=== PATIENT | male | born 1985 | race Caucasian/White ===

== ENCOUNTER 2016-12-17 12:51 | Emergency (ER) | payer MEDICAID ==
[~2016-12-17] VITALS: Ht 190.5 cm; Wt 75.3 kg
[2016-12-17 13:03] VITALS: BP 105/71
[2016-12-17] MEDS ORDERED: LIDOCAINE 1%, 20ML ONE (13:43)
[2016-12-17] MEDS ORDERED: LIDOCAINE 1%, 20ML SQ ONE (14:00)
== END 2016-12-17 14:01 | disposition home or self-care (01) ==
LOC: ED 13:55
DX: K04.7 Periapical abscess without sinus (principal)
CPT/HCPCS: 41800

== ENCOUNTER 2016-12-22 11:53 | Emergency (ER) | payer SELFPAY ==
[~2016-12-22] VITALS: Ht 190.5 cm; Wt 75.0 kg
[2016-12-22 12:05] VITALS: BP 110/70
[2016-12-22] MEDS ORDERED: LIDOCAINE 2% VISCOUS 15 ML UDC MM ONE (12:30)
== END 2016-12-22 13:15 | disposition home or self-care (01) ==
LOC: ED 13:10
DX: K04.7 Periapical abscess without sinus (principal)
CPT/HCPCS: 41800

== ENCOUNTER 2018-12-21 03:20 | Observation (INO) | payer MEDICAID, OTHER ==
[2018-12-21] VITALS (7 sets, daily range): BP systolic 101–116; BP diastolic 67–77
[~2018-12-21] VITALS: Ht 188 cm; Wt 64.8 kg
--- NOTE | 2018-12-21 03:30 | NUR ---
pt [place] [facility] [place] with c/o k 6.5 pt in nad at this time
[2018-12-21 03:53] LABS: BASOPHILS # (AUTO) 0.05 x10^3/uL (0-0.1); BASOPHILS % (AUTO) 1 % (0-1); EOSINOPHILS % (AUTO) 3 % (1-7); LYMPHOCYTES # (AUTO) 2.02 x10^3/uL (1-3.4); LYMPHOCYTES % (AUTO) 26 % (22-44); MD NO; MEAN CORPUSCULAR HEMOGLOBIN 28.4 pg (27.5-34.5); MEAN CORPUSCULAR HGB CONC 32.9 g/dL (33.2-36.2); MEAN CORPUSCULAR VOLUME 86.2 fL (81-97); MEAN PLATELET VOLUME 8.1 fL (7.4-10.4); MONOCYTES # (AUTO) 0.44 x10^3/uL (0.2-0.8); MONOCYTES % (AUTO) 6 % (2-9); NEUTROPHILS # (AUTO) 5.21 x10^3/uL (1.8-6.8); NEUTROPHILS % (AUTO) 66 % (42-75); PLATELET COUNT 421 x10^3/uL (130-400); RED BLOOD COUNT 5.68 x10^6/uL (4.38-5.82); RED CELL DISTRIBUTION WIDTH 14.3 % (9.4-14.8)
[2018-12-21 04:00] LABS: ALBUMIN 4.4 g/dL (3.4-5.0); ANION GAP 5 mmol/L (5-15); CALCIUM 9.4 mg/dL (8.5-10.1); CHLORIDE 101 mmol/L (98-107); CREATININE 1.41 mg/dL (0.7-1.3)
[2018-12-21] MEDS ORDERED: HYDROCORTISONE 100 MG INJ. IVPush STA (04:25)
--- NOTE | 2018-12-21 04:44 | NUR ---
piv place medicated per beka, pt in nad
[2018-12-21] MEDS ORDERED: FLUD5POW PO (04:48)
[2018-12-21] MEDS ORDERED: PRED5POW3 PO (04:50)
--- NOTE | 2018-12-21 04:53 | NUR ---
awaiting admit orders
[2018-12-21] MEDS ORDERED: CALCIUM GLUCONATE 9.2 MEQ in SODIUM CHLORIDE 0.9% 100 ML IV ONE (05:00)
--- NOTE | 2018-12-21 05:32 | NUR ---
report to tangela pt to floor with chris
[2018-12-21] MEDS ORDERED: ONDANSETRON ODT 4 MG PO PRN (07:00)
[2018-12-21] MEDS ORDERED: POLYETHYLENE GLYCOL 17 GM PACKET PO PRN (07:00)
[2018-12-21] MEDS ORDERED: LIDODERM 5% PATCH TD PRN (07:00)
[2018-12-21] MEDS ORDERED: GUAIFENESIN/DM 200-20MG, 10ML UDC PO PRN (07:00)
[2018-12-21] MEDS ORDERED: ICN HYDROCORTISONE 1 MG/ML IV IV SCH (07:00)
[2018-12-21] MEDS ORDERED: ACETAMINOPHEN 325 MG TABLET PO PRN (07:00)
[2018-12-21] MEDS ORDERED: hydrALAzine 20 MG/ML, 1ML IVPush PRN (07:00)
[2018-12-21] MEDS: HYDROCORTISONE 100 MG INJ. IVPush SCH ×2 (07:56→15:59)
[2018-12-21] MEDS: SODIUM CHLORIDE 0.9% 1,000 ML IV SCH ×2 (07:57→15:59)
[2018-12-21] MEDS ORDERED: PANTOPRAZOLE 40 MG IV IVPush SCH (09:00)
[2018-12-21] MEDS: DOCUSATE 100 MG CAPSULE PO PRN (15:59)
[2018-12-21 16:04] LABS: ANION GAP 9 mmol/L (5-15); CALCIUM 8.8 mg/dL (8.5-10.1); CHLORIDE 102 mmol/L (98-107); CREATININE 1.41 mg/dL (0.7-1.3)
[2018-12-21 17:13] LABS: MICROSCOPIC NOT IND
[2018-12-21 17:18] LABS: CULTURE INDICATED? NO
[2018-12-21] MEDS ORDERED: SODIUM POLYSTYRENE SULFONATE ORAL SUSP PO ONE (19:30)
[2018-12-22] MEDS: HYDROCORTISONE 100 MG INJ. IVPush SCH ×3 (00:08→16:47)
[2018-12-22] MEDS: SODIUM CHLORIDE 0.9% 1,000 ML IV SCH (00:09)
[2018-12-22 00:14] VITALS: BP 109/63
[2018-12-22 04:01] VITALS: BP 115/56
[2018-12-22] MEDS: PANTOPROZOLE 40MG TABLET PO SCH (05:08)
[2018-12-22 05:48] LABS: ANION GAP 6 mmol/L (5-15); CALCIUM 8.7 mg/dL (8.5-10.1); CHLORIDE 105 mmol/L (98-107); CREATININE 1.13 mg/dL (0.7-1.3)
[2018-12-22 05:54] LABS: BASOPHILS # (AUTO) 0.02 x10^3/uL (0-0.1); BASOPHILS % (AUTO) 0 % (0-1); EOSINOPHILS # (AUTO) 0.05 x10^3/uL (0-0.4); EOSINOPHILS % (AUTO) 1 % (1-7); LYMPHOCYTES # (AUTO) 0.91 x10^3/uL (1-3.4); LYMPHOCYTES % (AUTO) 10 % (22-44); MD NO; MEAN CORPUSCULAR HEMOGLOBIN 28.3 pg (27.5-34.5); MEAN CORPUSCULAR HGB CONC 32.7 g/dL (33.2-36.2); MEAN CORPUSCULAR VOLUME 86.7 fL (81-97); MEAN PLATELET VOLUME 8.5 fL (7.4-10.4); MONOCYTES # (AUTO) 0.32 x10^3/uL (0.2-0.8); MONOCYTES % (AUTO) 4 % (2-9); NEUTROPHILS # (AUTO) 7.65 x10^3/uL (1.8-6.8); NEUTROPHILS % (AUTO) 85 % (42-75); PLATELET COUNT 364 x10^3/uL (130-400); RED BLOOD COUNT 4.73 x10^6/uL (4.38-5.82); RED CELL DISTRIBUTION WIDTH 14.2 % (9.4-14.8)
[2018-12-22 08:49] VITALS: BP_SYST 104; BP_SYST 109; BP_DIAS 70; BP_DIAS 71
[2018-12-22 08:52] VITALS: BP 113/70
[2018-12-22 13:15] VITALS: BP 101/59
[2018-12-22 18:42] VITALS: BP 105/64
[2018-12-22] MEDS: FLUDROCORTISONE 0.1 MG TABLET PO SCH (20:53)
[2018-12-23] VITALS: BP 105/61
[2018-12-23 05:32] VITALS: BP 113/70
[2018-12-23] MEDS: PANTOPROZOLE 40MG TABLET PO SCH (05:35)
[2018-12-23 06:20] LABS: BASOPHILS # (AUTO) 0.03 x10^3/uL (0-0.1); BASOPHILS % (AUTO) 0 % (0-1); EOSINOPHILS # (AUTO) 0.01 x10^3/uL (0-0.4); EOSINOPHILS % (AUTO) 0 % (1-7); LYMPHOCYTES # (AUTO) 1.34 x10^3/uL (1-3.4); LYMPHOCYTES % (AUTO) 16 % (22-44); MD NO; MEAN CORPUSCULAR HEMOGLOBIN 27.9 pg (27.5-34.5); MEAN CORPUSCULAR HGB CONC 32.5 g/dL (33.2-36.2); MEAN CORPUSCULAR VOLUME 85.8 fL (81-97); MEAN PLATELET VOLUME 8.4 fL (7.4-10.4); MONOCYTES # (AUTO) 0.82 x10^3/uL (0.2-0.8); MONOCYTES % (AUTO) 10 % (2-9); NEUTROPHILS # (AUTO) 6.41 x10^3/uL (1.8-6.8); NEUTROPHILS % (AUTO) 75 % (42-75); PLATELET COUNT 329 x10^3/uL (130-400); RED BLOOD COUNT 4.42 x10^6/uL (4.38-5.82); RED CELL DISTRIBUTION WIDTH 14.9 % (9.4-14.8)
[2018-12-23 06:28] LABS: ANION GAP 6 mmol/L (5-15); CALCIUM 8.5 mg/dL (8.5-10.1); CHLORIDE 108 mmol/L (98-107)
[2018-12-23 06:29] LABS: CREATININE 0.99 mg/dL (0.7-1.3)
[2018-12-23] MEDS: DOCUSATE 100 MG CAPSULE PO PRN (08:08)
[2018-12-23] MEDS: FLUDROCORTISONE 0.1 MG TABLET PO SCH (08:08)
[2018-12-23 09:30] VITALS: BP 100/66
[2018-12-23] MEDS ORDERED: FLUD0.1T PO (11:48)
[2018-12-23] MEDS ORDERED: PRED10TA PO (11:48)
== END 2018-12-23 15:53 ==
LOC: ED 03:51 → EDIP 04:33 → INTOOBSV 04:33 → 4WST 07:21
PROVIDERS: ADMIT Internal Medicine; ATTEND Internal Medicine
DX: M79.10 Myalgia, unspecified site (principal); N17.9 Acute kidney failure, unspecified; E27.2 Addisonian crisis; E87.1 Hypo-osmolality and hyponatremia; R42 Dizziness and giddiness; E87.5 Hyperkalemia; F17.210 Nicotine dependence, cigarettes, uncomplicated; F12.90 Cannabis use, unspecified, uncomplicated; Z91.19 Patient's noncompliance with other medical treatment and regimen; Z86.018 Personal history of other benign neoplasm
CPT/HCPCS: 36415; 71046; 80048; 81003; 82040; 82533; 82962; 84443; 85025; 93005; 96361; 96365; 96375; 96376; 97161; 97165; 99285; C9113; G0378; J0610; J1720; J7030; J7512; 96374

== ENCOUNTER 2019-01-08 15:47 | Emergency (ER) | payer MEDICAID, OTHER ==
[~2019-01-08 15:47] MED LIST: FLUD0.1T PO; FLUD5POW PO; PRED10TA PO; PRED5POW3 PO
--- NOTE | 2019-01-08 15:55 | NUR ---
Pt uncooperative with staff trying to take vitals, refusing to let tech take blood pressure, uncooperative with PA and RN in triage, pt agitated and left triage room "im leaving" pt encouraged to stay, pt left ED
== END 2019-01-08 15:58 | disposition left against medical advice (07) ==
LOC: ED 15:52
DX: M79.645 Pain in left finger(s) (principal)
CPT/HCPCS: 99281

== ENCOUNTER 2019-01-09 19:34 | Emergency (ER) | payer MEDICAID ==
--- NOTE | 2019-01-09 19:45 | NUR ---
no answer x1 @ 1942
--- NOTE | 2019-01-09 19:52 | NUR ---
NO ANSWER X 2 @1950
--- NOTE | 2019-01-09 19:59 | NUR ---
NO ANSWER X 1999
--- NOTE | 2019-01-09 20:30 | NUR ---
NO ANSWER x4 2030
== END 2019-01-09 20:37 | disposition left against medical advice (07) ==
LOC: ED 20:20
DX: S69.92XA Unspecified injury of left wrist, hand and finger(s), initial encounter (principal); Z53.21 Procedure and treatment not carried out due to patient leaving prior to being seen by health care provider; X58.XXXA Exposure to other specified factors, initial encounter; Y93.89 Activity, other specified; Y92.89 Other specified places as the place of occurrence of the external cause; Y99.8 Other external cause status

== ENCOUNTER 2019-01-27 15:22 | Inpatient (IN) | payer MEDICAID ==
[~2019-01-27] VITALS: Ht 188 cm; Wt 84.5 kg
--- NOTE | 2019-01-27 15:49 | NUR ---
Patient to xray.
[2019-01-27] MEDS ORDERED: SODIUM CHLORIDE 0.9% 1,000ML IVBOLUS ONE (16:00)
[2019-01-27 16:17] LABS: BASOPHILS # (AUTO) 0.05 x10^3/uL (0-0.1); BASOPHILS % (AUTO) 1 % (0-1); EOSINOPHILS # (AUTO) 0.05 x10^3/uL (0-0.4); EOSINOPHILS % (AUTO) 1 % (1-7); LYMPHOCYTES # (AUTO) 2.54 x10^3/uL (1-3.4); LYMPHOCYTES % (AUTO) 30 % (22-44); MD NO; MEAN CORPUSCULAR HEMOGLOBIN 27.1 pg (27.5-34.5); MEAN CORPUSCULAR HGB CONC 32.8 g/dL (33.2-36.2); MEAN CORPUSCULAR VOLUME 82.7 fL (81-97); MEAN PLATELET VOLUME 8.8 fL (7.4-10.4); MONOCYTES # (AUTO) 0.61 x10^3/uL (0.2-0.8); MONOCYTES % (AUTO) 7 % (2-9); NEUTROPHILS # (AUTO) 5.13 x10^3/uL (1.8-6.8); NEUTROPHILS % (AUTO) 61 % (42-75); PLATELET COUNT 454 x10^3/uL (130-400); RED BLOOD COUNT 6.23 x10^6/uL (4.38-5.82); RED CELL DISTRIBUTION WIDTH 14.8 % (9.4-14.8)
[2019-01-27 16:29] LABS: ALANINE AMINOTRANSFERASE 34 U/L (12-78); ALBUMIN 5.1 g/dL (3.4-5.0); ANION GAP 12 mmol/L (5-15); CALCIUM 10.1 mg/dL (8.5-10.1); CHLORIDE 87 mmol/L (98-107); CREATININE 2.81 mg/dL (0.7-1.3)
[2019-01-27] MEDS ORDERED: FLUDROCORTISONE 0.1 MG TABLET PO ONE (16:30)
[2019-01-27] MEDS ORDERED: ONDANSETRON 2MG/ML, 2ML IVPush ONE (16:30)
--- NOTE | 2019-01-27 16:30 | NUR ---
Delay in care d/t patient being difficult stick.
[2019-01-27 16:31] LABS: ALKALINE PHOSPHATASE 162 U/L (45-117); BILIRUBIN,TOTAL 1.9 mg/dL (0.2-1.0); TOTAL PROTEIN 10.3 g/dL (6.4-8.2)
[2019-01-27] MEDS ORDERED: ALBUTEROL 0.5%, 20ML NPPB ONE (17:00)
[2019-01-27] MEDS ORDERED: DEXTROSE 50%, 50ML SYRINGE IVPush ONE ×2 (17:00→18:30)
[2019-01-27] MEDS ORDERED: FUROSEMIDE 40 MG/4 ML ONE (17:00)
[2019-01-27] MEDS ORDERED: SODIUM BICARB 8.4%, 50ML SYRINGE ONE (17:00)
[2019-01-27] MEDS ORDERED: INSULIN REGULAR 100 UNITS/ML, 3ML VIAL IVPush ONE (17:00)
[2019-01-27] MEDS ORDERED: SODIUM BICARB 8.4%, 50ML SYRINGE IVPush ONE (17:00)
[2019-01-27] MEDS ORDERED: DEXAMETHASONE 4 MG/ML, 1ML IVPush ONE (17:00)
[2019-01-27] MEDS ORDERED: CALCIUM CHLORIDE 10%, 10ML SYR ONE (17:00)
[2019-01-27] MEDS ORDERED: FUROSEMIDE 40 MG/4 ML IVPush ONE (17:00)
[2019-01-27] MEDS ORDERED: CALCIUM CHLORIDE 10%, 10ML SYR IVPush ONE (17:00)
[2019-01-27] MEDS ORDERED: DEXAMETHASONE 4 MG/ML, 5ML ONE (17:00)
[2019-01-27] MEDS ORDERED: ONDANSETRON 2MG/ML, 2ML ONE (17:00)
[2019-01-27] MEDS ORDERED: MORPHINE SULFATE 4 MG/ML, 1ML ONE ×2 (17:00→18:41)
[2019-01-27] MEDS ORDERED: INSULIN SINGLE DOSE, ER SQ-INSULIN ONE (17:04)
[2019-01-27] MEDS: MORPHINE SULFATE 4 MG/ML, 1ML IVPush PRN ×3 (17:08→23:40)
--- NOTE | 2019-01-27 17:18 | NUR ---
Patient medicated per eMAR. Patient reports relief. VSS.
[2019-01-27] MEDS ORDERED: LORazepam 2 MG/ML, 1ML IVPush ONE (17:30)
[2019-01-27] MEDS ORDERED: LORazepam 2 MG/ML, 1ML ONE (17:41)
[2019-01-27 18:01] LABS: MICROSCOPIC INDICATED
[2019-01-27 18:04] LABS: ANION GAP 10 mmol/L (5-15); CALCIUM 9.8 mg/dL (8.5-10.1); CHLORIDE 92 mmol/L (98-107); CREATININE 2.61 mg/dL (0.7-1.3)
--- NOTE | 2019-01-27 18:25 | NUR ---
Patient back from CT. C/O nausea. Blood glucose = 43. D50 admin. Patient provided with JESUS.
[2019-01-27 18:32] LABS: CULTURE INDICATED? NO
--- NOTE | 2019-01-27 18:50 | NUR ---
C/O pain. Morphine admin. [facility] at bedside.
[2019-01-27] MEDS ORDERED: ONDANSETRON ODT 4 MG PO PRN (19:00)
[2019-01-27] MEDS ORDERED: PROMETHAZINE 25 MG/ML, 1ML IM PRN (19:00)
[2019-01-27] MEDS ORDERED: ONDANSETRON 2MG/ML, 2ML IVPush PRN (19:00)
[2019-01-27] MEDS ORDERED: D5%-0.45% NACL 1,000 ML IV SCH ×2 (19:00→20:00)
[2019-01-27] MEDS ORDERED: HEPARIN 5,000 UNITS/ML, 1ML ONE (19:25)
[2019-01-27] MEDS: HEPARIN 5,000 UNITS/ML, 1ML SQ SCH (19:38)
--- NOTE | 2019-01-27 19:41 | NUR ---
Report to JACKI Hernandez.
[2019-01-27] MEDS: OXYcodone/APAP 7.5/325MG TABLET PO PRN (22:32)
[2019-01-27 22:53] LABS: AMPHETAMINE SCREEN, URINE Negative (Negative); BARBITURATE SCREEN, URINE Negative (Negative); BENZODIAZEPINE SCREEN, URINE Positive (Negative); CANNABINOID SCREEN, URINE Negative (Negative); COCAINE SCREEN, URINE Negative (Negative); METHADONE SCREEN, URINE Negative (Negative); OPIATE SCREEN, URINE Positive (Negative)
[2019-01-27 23:11] LABS: ANION GAP 9 mmol/L (5-15); CALCIUM 9.3 mg/dL (8.5-10.1); CHLORIDE 92 mmol/L (98-107); CREATININE 2.49 mg/dL (0.7-1.3)
[2019-01-27] MEDS ORDERED: FUROSEMIDE 20 MG/2 ML IV ONE (23:30)
[2019-01-28] MEDS: SODIUM POLYSTYRENE SULFONATE ORAL SUSP PO SCH ×5 (00:09→20:43)
[2019-01-28] MEDS ORDERED: SODIUM CHLORIDE 0.9% 1,000 ML IV SCH ×2 (00:30)
[2019-01-28] MEDS: HYDROCORTISONE 100 MG INJ. IVPush SCH ×3 (01:12→17:13)
[2019-01-28] MEDS: SODIUM CHLORIDE 0.9% 1,000 ML IV SCH ×3 (01:18→20:50)
[2019-01-28] MEDS: MORPHINE SULFATE 4 MG/ML, 1ML IVPush PRN ×4 (02:37→11:39)
[2019-01-28] MEDS: HEPARIN 5,000 UNITS/ML, 1ML SQ SCH ×3 (02:37→18:35)
[2019-01-28 03:21] LABS: BASOPHILS # (AUTO) 0.02 x10^3/uL (0-0.1); BASOPHILS % (AUTO) 0 % (0-1); EOSINOPHILS % (AUTO) 0 % (1-7); LYMPHOCYTES # (AUTO) 1.03 x10^3/uL (1-3.4); LYMPHOCYTES % (AUTO) 14 % (22-44); MD NO; MEAN CORPUSCULAR HGB CONC 32.6 g/dL (33.2-36.2); MEAN CORPUSCULAR VOLUME 82.7 fL (81-97); MEAN PLATELET VOLUME 8.6 fL (7.4-10.4); MONOCYTES # (AUTO) 0.09 x10^3/uL (0.2-0.8); MONOCYTES % (AUTO) 1 % (2-9); NEUTROPHILS % (AUTO) 85 % (42-75); PLATELET COUNT 387 x10^3/uL (130-400); RED BLOOD COUNT 5.47 x10^6/uL (4.38-5.82); RED CELL DISTRIBUTION WIDTH 14.8 % (9.4-14.8)
[2019-01-28 03:30] LABS: CALCIUM 8.8 mg/dL (8.5-10.1); CHLORIDE 92 mmol/L (98-107); CREATININE 2.25 mg/dL (0.7-1.3)
[2019-01-28 03:39] LABS: ANION GAP 12 mmol/L (5-15)
[2019-01-28] MEDS ORDERED: SODIUM CHLORIDE 0.9%, 500ML IVBOLUS ONE (04:00)
[2019-01-28] MEDS ORDERED: FUROSEMIDE 20 MG/2 ML IV ONE (04:00)
[2019-01-28] MEDS ORDERED: SODIUM BICARB 8.4%, 50ML SYRINGE IVPush ONE (04:00)
[2019-01-28] MEDS ORDERED: INSULIN REGULAR 100 UNITS/ML, 3ML VIAL SQ-INSULIN SCH (04:00)
[2019-01-28] MEDS ORDERED: ALBUTEROL 4 MG TABLET PO ONE (04:00)
[2019-01-28] MEDS ORDERED: DEXTROSE 50%, 50ML SYRINGE IVPush ONE (04:30)
[2019-01-28 05:23] VITALS: BP 95/56
[2019-01-28] MEDS: OXYcodone/APAP 7.5/325MG TABLET PO PRN ×5 (06:32→22:39)
[2019-01-28 06:37] LABS: ANION GAP 10 mmol/L (5-15); CHLORIDE 90 mmol/L (98-107); CREATININE 2.08 mg/dL (0.7-1.3)
[2019-01-28] MEDS: FLUDROCORTISONE 0.1 MG TABLET PO SCH (08:41)
[2019-01-28] MEDS ORDERED: MAGNESIUM SULFATE PMX 2GM/50ML 50 ML IV ONE (09:00)
[2019-01-28 10:25] LABS: ANION GAP 10 mmol/L (5-15); CALCIUM 8.9 mg/dL (8.5-10.1); CHLORIDE 92 mmol/L (98-107); CREATININE 1.82 mg/dL (0.7-1.3)
[2019-01-28 10:27] LABS: CREATINE KINASE, TOTAL 121 U/L (39-308)
[2019-01-28] MEDS: HYDROXYZINE PAMOATE 50MG CAP PO PRN ×2 (11:39→21:15)
[2019-01-28] MEDS ORDERED: FUROSEMIDE 40 MG/4 ML IV ONE (13:00)
[2019-01-28] MEDS ORDERED: ACETAMINOPHEN 325 MG TABLET PO PRN (14:00)
[2019-01-28 14:22] LABS: ANION GAP 11 mmol/L (5-15); CALCIUM 8.6 mg/dL (8.5-10.1); CHLORIDE 92 mmol/L (98-107); CREATININE 1.68 mg/dL (0.7-1.3)
[2019-01-28] MEDS ORDERED: D5%-0.45% NACL 1,000 ML IV SCH (19:00)
[2019-01-28 20:25] LABS: ANION GAP 10 mmol/L (5-15); CHLORIDE 93 mmol/L (98-107); CREATININE 1.78 mg/dL (0.7-1.3)
[2019-01-29 00:29] VITALS: BP 120/74
[2019-01-29] MEDS ORDERED: SODIUM CHLORIDE 0.9% 1,000 ML IV SCH (00:30)
[2019-01-29] MEDS: HYDROCORTISONE 100 MG INJ. IVPush SCH ×3 (02:01→16:50)
[2019-01-29] MEDS: HEPARIN 5,000 UNITS/ML, 1ML SQ SCH ×3 (02:01→18:19)
[2019-01-29 02:19] LABS: ANION GAP 6 mmol/L (5-15); CHLORIDE 98 mmol/L (98-107); CREATININE 1.39 mg/dL (0.7-1.3)
[2019-01-29] MEDS: SODIUM POLYSTYRENE SULFONATE ORAL SUSP PO SCH (05:19)
[2019-01-29] MEDS ORDERED: OXYcodone/APAP 7.5/325MG TABLET PO PRN (06:00)
[2019-01-29 07:36] VITALS: BP 117/79
[2019-01-29] MEDS: FLUDROCORTISONE 0.1 MG TABLET PO SCH (08:08)
[2019-01-29 08:34] LABS: ANION GAP 7 mmol/L (5-15); CALCIUM 8.2 mg/dL (8.5-10.1); CHLORIDE 100 mmol/L (98-107)
[2019-01-29 08:35] LABS: CREATININE 1.23 mg/dL (0.7-1.3)
[2019-01-29 12:00] LABS: MICROSCOPIC NOT IND
[2019-01-29 12:02] LABS: CULTURE INDICATED? NO
[2019-01-29 12:15] VITALS: BP 114/66
[2019-01-29 16:34] LABS: ANION GAP 6 mmol/L (5-15); CALCIUM 8.3 mg/dL (8.5-10.1); CHLORIDE 100 mmol/L (98-107); CREATININE 1.26 mg/dL (0.7-1.3)
[2019-01-29] MEDS: HYDROXYZINE PAMOATE 50MG CAP PO PRN (18:19)
[2019-01-29 20:12] VITALS: BP 120/65
[2019-01-29] MEDS: ZOLPIDEM 5MG TABLET PO PRN (20:44)
[2019-01-30] MEDS: HYDROXYZINE PAMOATE 50MG CAP PO PRN ×2 (02:08→08:54)
[2019-01-30] MEDS: HYDROCORTISONE 100 MG INJ. IVPush SCH (02:08)
[2019-01-30] MEDS: HEPARIN 5,000 UNITS/ML, 1ML SQ SCH ×3 (02:09→19:00)
[2019-01-30 02:15] VITALS: BP 113/74
[2019-01-30 04:43] LABS: ANION GAP 6 mmol/L (5-15); CALCIUM 8.3 mg/dL (8.5-10.1); CHLORIDE 102 mmol/L (98-107); CREATININE 1.13 mg/dL (0.7-1.3)
[2019-01-30 07:53] VITALS: BP 115/73
[2019-01-30] MEDS: FLUDROCORTISONE 0.1 MG TABLET PO SCH (08:44)
[2019-01-30] MEDS ORDERED: HYDROCORTISONE 100 MG INJ. IVPush SCH ×2 (09:00→21:00)
[2019-01-30 14:00] VITALS: BP 129/70
[2019-01-30 19:32] VITALS: BP 121/73
[2019-01-30] MEDS: ZOLPIDEM 5MG TABLET PO PRN (21:25)
[2019-01-31] MEDS: HEPARIN 5,000 UNITS/ML, 1ML SQ SCH (02:47)
[2019-01-31 05:41] LABS: ANION GAP 8 mmol/L (5-15); CALCIUM 8.9 mg/dL (8.5-10.1); CHLORIDE 103 mmol/L (98-107); CREATININE 1.04 mg/dL (0.7-1.3)
[2019-01-31] MEDS ORDERED: FLUD0.1T PO (07:42)
[2019-01-31] MEDS ORDERED: PRED10TA PO (07:42)
[2019-01-31] MEDS: FLUDROCORTISONE 0.1 MG TABLET PO SCH (08:21)
== END 2019-01-31 09:08 | disposition home or self-care (01) | DRG 644 ==
LOC: ED 18:01 → EDIP 18:47 → CCU 20:00 → 5SO 01-28 22:28 → 4WST 01-29 17:23
PROVIDERS: ADMIT Family Medicine; ATTEND Family Medicine
DX: E27.2 Addisonian crisis (principal); E87.1 Hypo-osmolality and hyponatremia; N17.9 Acute kidney failure, unspecified; F19.20 Other psychoactive substance dependence, uncomplicated; E27.1 Primary adrenocortical insufficiency; E16.0 Drug-induced hypoglycemia without coma; E83.42 Hypomagnesemia; E86.0 Dehydration; E87.5 Hyperkalemia; F12.90 Cannabis use, unspecified, uncomplicated; F17.200 Nicotine dependence, unspecified, uncomplicated; G89.4 Chronic pain syndrome; H91.90 Unspecified hearing loss, unspecified ear; K59.00 Constipation, unspecified; F43.10 Post-traumatic stress disorder, unspecified; Z79.52 Long term (current) use of systemic steroids; Z91.14 Patient's other noncompliance with medication regimen; E86.1 Hypovolemia
CPT/HCPCS: 36415; 70450; 74022; 80048; 80053; 80307; 81001; 81003; 82533; 82550; 82962; 83690; 83735; 84443; 85025; 87081; 93005; 96361; 96374; 96375; 96376; 99291; G0378; J1100; J1644; J1815; J1940; J2405; J1720; J2060; J2270; J3475; J7030; J7040; J7512

== ENCOUNTER 2019-02-03 06:28 | Emergency (ER) | payer MEDICAID ==
[~2019-02-03] VITALS: Ht 188 cm; Wt 89.0 kg
--- NOTE | 2019-02-03 06:47 | NUR ---
REPORT TO YUSRA ECHEVERRIA
--- NOTE | 2019-02-03 07:00 | NUR ---
CARE ASSUMED FOR PT.
--- NOTE | 2019-02-03 07:08 | NUR ---
Patient is resting comfortably in bed. Vital Signs within normal limits.
[2019-02-03] MEDS ORDERED: SODIUM CHLORIDE FLUSH 10ML SYR IVF ONE (07:30)
[2019-02-03] MEDS ORDERED: KETOROLAC 30 MG/1 ML IVPush ONE (07:30)
[2019-02-03] MEDS ORDERED: ONDANSETRON 2MG/ML, 2ML IVPush ONE (07:30)
[2019-02-03] MEDS ORDERED: SODIUM CHLORIDE 0.9% 1,000ML IVBOLUS ONE (07:30)
[2019-02-03] MEDS ORDERED: ONDANSETRON 2MG/ML, 2ML ONE (07:42)
[2019-02-03] MEDS ORDERED: KETOROLAC 30 MG/1 ML ONE (07:42)
[2019-02-03 08:02] LABS: ALANINE AMINOTRANSFERASE 59 U/L (12-78); ALBUMIN 3.6 g/dL (3.4-5.0); ANION GAP 8 mmol/L (5-15); CALCIUM 8.3 mg/dL (8.5-10.1); CHLORIDE 101 mmol/L (98-107); CREATININE 1.41 mg/dL (0.7-1.3)
[2019-02-03 08:04] LABS: ALKALINE PHOSPHATASE 121 U/L (45-117); BILIRUBIN,TOTAL 1.7 mg/dL (0.2-1.0); CREATINE KINASE, TOTAL 299 U/L (39-308)
[2019-02-03 08:06] LABS: BASOPHILS # (AUTO) 0.06 x10^3/uL (0-0.1); BASOPHILS % (AUTO) 1 % (0-1); EOSINOPHILS # (AUTO) 0.13 x10^3/uL (0-0.4); EOSINOPHILS % (AUTO) 2 % (1-7); LYMPHOCYTES # (AUTO) 1.21 x10^3/uL (1-3.4); LYMPHOCYTES % (AUTO) 18 % (22-44); MD NO; MEAN CORPUSCULAR HEMOGLOBIN 26.8 pg (27.5-34.5); MEAN CORPUSCULAR HGB CONC 32.8 g/dL (33.2-36.2); MEAN CORPUSCULAR VOLUME 81.5 fL (81-97); MEAN PLATELET VOLUME 7.7 fL (7.4-10.4); MONOCYTES # (AUTO) 0.36 x10^3/uL (0.2-0.8); MONOCYTES % (AUTO) 5 % (2-9); NEUTROPHILS # (AUTO) 4.95 x10^3/uL (1.8-6.8); NEUTROPHILS % (AUTO) 74 % (42-75); PLATELET COUNT 285 x10^3/uL (130-400); RED BLOOD COUNT 4.33 x10^6/uL (4.38-5.82); RED CELL DISTRIBUTION WIDTH 15.9 % (9.4-14.8)
--- NOTE | 2019-02-03 08:36 | NUR ---
Patient is resting comfortably in bed. Vital Signs within normal limits. Urine collected.
[2019-02-03 09:05] LABS: CULTURE INDICATED? NO; MICROSCOPIC NOT IND
--- NOTE | 2019-02-03 09:07 | NUR ---
Told Evangelista that pt reports the pain meds did not work.
[2019-02-03] MEDS ORDERED: HYDROcodone/APAP 5/325 TABLET ONE (09:16)
[2019-02-03] MEDS ORDERED: LISINOPRIL 10 MG TABLET ONE ×2 (09:20→09:21)
[2019-02-03] MEDS ORDERED: HYDROcodone/APAP 5/325 TABLET PO ONE (09:30)
[2019-02-03 10:10] VITALS: BP 110/77
--- NOTE | 2019-02-03 10:27 | NUR ---
DURING DISCHARGE, PT GOT ANGRY THAT I DIDN'T HAVE A NORCO PRESCRIPTION FOR HIM. PT STATES, "FUCK THIS PLACE AND FUCK YOU GUYS". PT IS BLEEDING AT IV SITE AND WON'T ALLOW ME TO PUT PRESSURE AT SITE, PT IS FLINGING BLOOD EVERYWHERE. PT REFUSED TO SIGN DC PAPERS.
== END 2019-02-03 10:27 | disposition home or self-care (01) ==
LOC: ED 07:02
DX: M79.18 Myalgia, other site (principal); R11.2 Nausea with vomiting, unspecified; R53.1 Weakness; Z76.0 Encounter for issue of repeat prescription
CPT/HCPCS: 36415; 80053; 81003; 82550; 85025; 96361; 96374; 96375; 99283; J1885; J2405; J7030; J7512

== ENCOUNTER 2019-07-26 16:37 | Inpatient (IN) | payer MEDICAID ==
[~2019-07-26] VITALS: Ht 188 cm; Wt 85.7 kg
--- NOTE | 2019-07-26 17:27 | NUR ---
pt also c/o R ankle pain. pain on dorsiflexion. will notify pa. as
[2019-07-26 17:40] LABS: BASOPHILS # (AUTO) 0.13 x10^3/uL (0-0.1); BASOPHILS % (AUTO) 1 % (0-1); EOSINOPHILS # (AUTO) 0.23 x10^3/uL (0-0.4); EOSINOPHILS % (AUTO) 2 % (1-7); LYMPHOCYTES # (AUTO) 2.64 x10^3/uL (1-3.4); LYMPHOCYTES % (AUTO) 27 % (22-44); MD NO; MEAN CORPUSCULAR HEMOGLOBIN 28.9 pg (27.5-34.5); MEAN CORPUSCULAR HGB CONC 34.1 g/dL (33.2-36.2); MEAN CORPUSCULAR VOLUME 84.7 fL (81-97); MONOCYTES # (AUTO) 0.79 x10^3/uL (0.2-0.8); MONOCYTES % (AUTO) 8 % (2-9); NEUTROPHILS # (AUTO) 6.15 x10^3/uL (1.8-6.8); NEUTROPHILS % (AUTO) 62 % (42-75); PLATELET COUNT 408 x10^3/uL (130-400); RED BLOOD COUNT 4.87 x10^6/uL (4.38-5.82); RED CELL DISTRIBUTION WIDTH 13.9 % (9.4-14.8)
[2019-07-26 17:50] LABS: ANION GAP 12 mmol/L (5-15); CALCIUM 8.5 mg/dL (8.5-10.1); CHLORIDE 95 mmol/L (98-107); CREATININE 1.35 mg/dL (0.7-1.3)
[2019-07-26] MEDS ORDERED: ACETAMINOPHEN 325 MG TABLET ONE (18:13)
--- NOTE | 2019-07-26 18:23 | NUR ---
PIV EST, IVF. NA 125. VSS. CALL CRUZ IN REACH. TYLENOL FOR PAIN.
[2019-07-26] MEDS ORDERED: ACETAMINOPHEN 325 MG TABLET PO ONE (18:30)
[2019-07-26] MEDS ORDERED: SODIUM CHLORIDE 0.9% 1,000ML IVBOLUS ONE (19:00)
[2019-07-26] MEDS ORDERED: SODIUM CHLORIDE FLUSH 10ML SYR IVF ONE (19:30)
--- NOTE | 2019-07-26 19:40 | NUR ---
pt to be admitted. Dr. Mitchell was at bedside. pt resting in bed. had one liter NS. sleeping. vss. call woodson in reach. as
[2019-07-26] MEDS ORDERED: HYDROCORTISONE 20 MG TABLET PO ONE (20:00)
--- NOTE | 2019-07-26 20:04 | NUR ---
PT AWARE OF ADMIT, AGREES. MEDS PER SEP. CALL CRUZ IN REACH. NAD. SLEEPING.
[2019-07-26] MEDS ORDERED: ONDANSETRON ODT 4 MG PO PRN (21:30)
[2019-07-26] MEDS ORDERED: morphine SULFATE 10 MG/ML, 1ML IVPush PRN (21:30)
[2019-07-26] MEDS ORDERED: LABETALOL 5MG/ML, 20ML IVPush PRN (21:30)
[2019-07-26] MEDS ORDERED: FOLIC ACID 5 MG/ML IM ONE (21:30)
[2019-07-26] MEDS ORDERED: hydrALAzine 20 MG/ML, 1ML IVPush PRN (21:30)
[2019-07-26] MEDS ORDERED: LORazepam 2 MG/ML, 1ML IV PRN ×4 (21:30)
[2019-07-26] MEDS ORDERED: DOCUSATE 100 MG CAPSULE PO PRN (21:30)
[2019-07-26] MEDS ORDERED: OXYcodone/APAP 5/325MG TABLET PO PRN (21:30)
[2019-07-26] MEDS ORDERED: LORazepam 1MG TABLET PO PRN ×2 (21:30)
[2019-07-26] MEDS ORDERED: THIAMINE 200 MG in DEXTROSE 5% 50 ML IVPB ONE (21:30)
[2019-07-26] MEDS ORDERED: ONDANSETRON 2MG/ML, 2ML IVPush PRN (21:30)
[2019-07-26] MEDS ORDERED: ENOXAPARIN 40 MG/0.4 ML ONE (22:02)
[2019-07-26] MEDS: SODIUM CHLORIDE 0.9% 1,000 ML IV SCH (22:25)
[2019-07-26] MEDS: ENOXAPARIN 40 MG/0.4 ML SQ SCH (22:26)
[2019-07-26 22:27] LABS: ANION GAP 7 mmol/L (5-15); CALCIUM 8.8 mg/dL (8.5-10.1); CHLORIDE 100 mmol/L (98-107); CREATININE 1.06 mg/dL (0.7-1.3)
--- NOTE | 2019-07-26 22:32 | NUR ---
FLOOR MEDS PER MAR. PT NODDING OFF. DENIES DRUG USE. VSS. FLUIDS INFUSING. URINAL EMPTIED. APPROX 1 L OUT. CALL CRUZ/FALL PRECS. AWAITING BED.
[2019-07-26] MEDS ORDERED: NICOTINE 21 MG/24 HR PATCH.TD24 ONE (22:35)
[2019-07-26] MEDS: NICOTINE 21 MG/24 HR PATCH.TD24 TD SCH (22:37)
--- NOTE | 2019-07-26 23:00 | NUR ---
report to Ximena ECHEVERRIA. Moved into hospital bed into room 4.
--- NOTE | 2019-07-26 23:17 | NUR ---
REPORT RECEIVED FROM JACKI RYAN. PT TRANSFERED TO ED 04, ALL BELONGINGS WITH PT. PT PLACED ON HOSPITAL BED. MONITORING REAPPLIED. PT DENIES ANY NEEDS AT THIS TIME. CALL LIGHT WITHIN REACH, ALL SAFETY MEASURES IN PLACE.
--- NOTE | 2019-07-27 00:30 | NUR ---
PT RESTING ON HOSPITAL BED WITH EYES CLOSED. PT PROVIDED MEAL AND FLUIDS UPON REQUEST. ALL NEEDS MET AT THIS TIME. CALL LIGHT WITHIN REACH
--- NOTE | 2019-07-27 03:27 | NUR ---
REPORT GIVEN TO JACKI ERNST.
[2019-07-27 04:19] VITALS: BP 115/77
[2019-07-27] MEDS: SODIUM CHLORIDE 0.9% 1,000 ML IV SCH (04:19)
[2019-07-27] MEDS ORDERED: QUET100T4 PO (04:54)
[2019-07-27] MEDS ORDERED: RISP3TAB24 PO (04:54)
[2019-07-27] MEDS ORDERED: TRAZ-137 PO (04:54)
[2019-07-27] MEDS ORDERED: DIAZ5TAB PO (04:54)
[2019-07-27] MEDS ORDERED: FLU VACC QS2019-20 36MOS UP/PF 0.5 ML IM-VACC ONE (05:00)
[2019-07-27] MEDS: ACETAMINOPHEN 325 MG TABLET PO PRN ×2 (05:19→17:28)
[2019-07-27 06:35] LABS: BASOPHILS # (AUTO) 0.04 x10^3/uL (0-0.1); BASOPHILS % (AUTO) 1 % (0-1); EOSINOPHILS # (AUTO) 0.06 x10^3/uL (0-0.4); EOSINOPHILS % (AUTO) 1 % (1-7); LYMPHOCYTES % (AUTO) 22 % (22-44); MD NO; MEAN CORPUSCULAR HEMOGLOBIN 28.9 pg (27.5-34.5); MEAN CORPUSCULAR HGB CONC 33.7 g/dL (33.2-36.2); MEAN CORPUSCULAR VOLUME 85.6 fL (81-97); MEAN PLATELET VOLUME 8.1 fL (7.4-10.4); MONOCYTES # (AUTO) 0.49 x10^3/uL (0.2-0.8); MONOCYTES % (AUTO) 10 % (2-9); NEUTROPHILS # (AUTO) 3.21 x10^3/uL (1.8-6.8); NEUTROPHILS % (AUTO) 66 % (42-75); PLATELET COUNT 373 x10^3/uL (130-400); RED BLOOD COUNT 4.71 x10^6/uL (4.38-5.82); RED CELL DISTRIBUTION WIDTH 13.8 % (9.4-14.8)
[2019-07-27 06:42] LABS: ANION GAP 5 mmol/L (5-15); CALCIUM 8.5 mg/dL (8.5-10.1); CHLORIDE 103 mmol/L (98-107); CREATININE 1.12 mg/dL (0.7-1.3)
[2019-07-27 06:49] LABS: BARBITURATE SCREEN, URINE Negative (Negative); BENZODIAZEPINE SCREEN, URINE Positive (Negative); CANNABINOID SCREEN, URINE Negative (Negative); COCAINE SCREEN, URINE Negative (Negative); METHADONE SCREEN, URINE Negative (Negative); OPIATE SCREEN, URINE Negative (Negative)
[2019-07-27 06:50] LABS: AMPHETAMINE SCREEN, URINE Positive (Negative)
[2019-07-27] MEDS ORDERED: SODIUM CHLORIDE 0.9% 1,000ML IVBOLUS ONE (07:00)
[2019-07-27] MEDS ORDERED: HYDROCORTISONE 100 MG INJ. IVPush SCH ×2 (07:30→13:30)
[2019-07-27] MEDS ORDERED: SODIUM CHLORIDE 0.9%, 500ML IVBOLUS ONE (07:30)
[2019-07-27] MEDS: MULTIVITAMINS/MINERALS TABLET PO SCH (08:59)
[2019-07-27] MEDS: FLUDROCORTISONE 0.1 MG TABLET PO SCH (08:59)
[2019-07-27 09:24] VITALS: BP 127/74
[2019-07-27] MEDS ORDERED: INSULIN REGULAR 100 UNITS/ML, 3ML VIAL IVPush ONE (10:00)
[2019-07-27] MEDS ORDERED: SODIUM BICARBONATE 8.4% 100 MEQ in DEXTROSE 5% 1,000 ML IV SCH (10:30)
[2019-07-27] MEDS ORDERED: DEXTROSE 50%, 50ML SYRINGE IVPush ONE (10:30)
[2019-07-27 11:00] LABS: ANION GAP 8 mmol/L (5-15); CALCIUM 8.2 mg/dL (8.5-10.1); CHLORIDE 103 mmol/L (98-107); CREATININE 1.04 mg/dL (0.7-1.3)
[2019-07-27 13:40] VITALS: BP 131/81
[2019-07-27] MEDS: LORazepam 0.5MG TABLET PO PRN (13:40)
[2019-07-27 14:58] LABS: ANION GAP 7 mmol/L (5-15); CALCIUM 8.8 mg/dL (8.5-10.1); CHLORIDE 103 mmol/L (98-107); CREATININE 1.18 mg/dL (0.7-1.3)
[2019-07-27] MEDS: SODIUM CHLORIDE 0.45% 1,000 ML IV SCH (17:12)
[2019-07-27] MEDS: HYDROCORTISONE 100 MG INJ. IVPush SCH (17:28)
[2019-07-27 19:35] LABS: ANION GAP 7 mmol/L (5-15); CALCIUM 8.8 mg/dL (8.5-10.1); CHLORIDE 101 mmol/L (98-107)
[2019-07-27 20:22] VITALS: BP 131/89
[2019-07-27] MEDS ORDERED: SODIUM CHLORIDE 0.9% 1,000 ML IV SCH (21:08)
[2019-07-27] MEDS: ENOXAPARIN 40 MG/0.4 ML SQ SCH (22:36)
[2019-07-27] MEDS: LORazepam 1MG TABLET PO PRN (22:37)
[2019-07-27] MEDS: NICOTINE 21 MG/24 HR PATCH.TD24 TD SCH (22:37)
[2019-07-27 22:40] LABS: ANION GAP 5 mmol/L (5-15); CALCIUM 9.3 mg/dL (8.5-10.1); CHLORIDE 100 mmol/L (98-107); CREATININE 1.27 mg/dL (0.7-1.3)
[2019-07-28 00:07] VITALS: BP 138/73
[2019-07-28] MEDS: HYDROCORTISONE 100 MG INJ. IVPush SCH ×3 (01:26→17:11)
[2019-07-28 07:32] VITALS: BP 133/93
[2019-07-28 08:00] LABS: ANION GAP 6 mmol/L (5-15); CHLORIDE 105 mmol/L (98-107); CREATININE 0.98 mg/dL (0.7-1.3)
[2019-07-28] MEDS: FLUDROCORTISONE 0.1 MG TABLET PO SCH (08:54)
[2019-07-28] MEDS: MULTIVITAMINS/MINERALS TABLET PO SCH (08:54)
[2019-07-28] MEDS: SODIUM CHLORIDE 0.45% 1,000 ML IV SCH (12:18)
[2019-07-28 12:40] VITALS: BP 125/81
[2019-07-28 13:54] LABS: RAPID INFLUENZA A Negative (Negative); RAPID INFLUENZA B Negative (Negative)
[2019-07-28 15:23] LABS: ANION GAP 8 mmol/L (5-15); CALCIUM 8.2 mg/dL (8.5-10.1); CHLORIDE 102 mmol/L (98-107)
[2019-07-28 15:25] LABS: CREATININE 1.15 mg/dL (0.7-1.3)
[2019-07-28] MEDS: LORazepam 1MG TABLET PO PRN ×2 (17:15→23:44)
[2019-07-28 19:12] VITALS: BP 120/73
[2019-07-28] MEDS: NICOTINE 21 MG/24 HR PATCH.TD24 TD SCH (20:43)
[2019-07-28] MEDS: ENOXAPARIN 40 MG/0.4 ML SQ SCH (21:00)
[2019-07-29 00:08] LABS: ANION GAP 7 mmol/L (5-15); CALCIUM 8.5 mg/dL (8.5-10.1); CHLORIDE 105 mmol/L (98-107); CREATININE 1.41 mg/dL (0.7-1.3)
[2019-07-29 00:46] VITALS: BP 138/82
[2019-07-29] MEDS: HYDROCORTISONE 100 MG INJ. IVPush SCH ×2 (01:53→09:11)
[2019-07-29 06:03] LABS: ANION GAP 7 mmol/L (5-15); CALCIUM 8.3 mg/dL (8.5-10.1); CHLORIDE 103 mmol/L (98-107)
[2019-07-29 06:05] LABS: CREATININE 1.14 mg/dL (0.7-1.3)
[2019-07-29] MEDS: MULTIVITAMINS/MINERALS TABLET PO SCH (09:12)
[2019-07-29] MEDS: FLUDROCORTISONE 0.1 MG TABLET PO SCH (09:12)
[2019-07-29] MEDS: LORazepam 1MG TABLET PO PRN ×3 (09:25→18:43)
[2019-07-29 10:36] VITALS: BP 121/74
[2019-07-29 13:02] VITALS: BP 158/81
[2019-07-29] MEDS: ACETAMINOPHEN 325 MG TABLET PO PRN ×2 (13:13→21:14)
[2019-07-29 14:52] LABS: ANION GAP 7 mmol/L (5-15); CHLORIDE 105 mmol/L (98-107); CREATININE 0.94 mg/dL (0.7-1.3)
[2019-07-29 15:01] LABS: CALCIUM 8.7 mg/dL (8.5-10.1)
[2019-07-29] MEDS ORDERED: SODIUM CHLORIDE 0.45% 1,000 ML IV SCH ×2 (15:30)
[2019-07-29 19:36] VITALS: BP 106/66
[2019-07-29] MEDS: ENOXAPARIN 40 MG/0.4 ML SQ SCH (21:07)
[2019-07-29] MEDS: NICOTINE 21 MG/24 HR PATCH.TD24 TD SCH (21:07)
[2019-07-29] MEDS: LORazepam 0.5MG TABLET PO PRN (21:14)
[2019-07-30 01:14] VITALS: BP 124/86
[2019-07-30] MEDS: LORazepam 1MG TABLET PO PRN (03:37)
[2019-07-30 05:50] LABS: ANION GAP 4 mmol/L (5-15); CALCIUM 8.7 mg/dL (8.5-10.1); CHLORIDE 108 mmol/L (98-107)
[2019-07-30 05:51] LABS: CREATININE 0.88 mg/dL (0.7-1.3)
[2019-07-30 07:45] VITALS: BP 119/76
[2019-07-30] MEDS: MULTIVITAMINS/MINERALS TABLET PO SCH (09:25)
[2019-07-30] MEDS: FLUDROCORTISONE 0.1 MG TABLET PO SCH (09:25)
[2019-07-30] MEDS: ACETAMINOPHEN 325 MG TABLET PO PRN (09:29)
== END 2019-07-30 11:15 | disposition left against medical advice (07) | DRG 641 ==
LOC: ED 18:35 → EDIP 19:47 → 3N 07-27 04:04 → 4EST 07-27 10:57
PROVIDERS: ADMIT Internal Medicine; ATTEND Internal Medicine
DX: E87.1 Hypo-osmolality and hyponatremia (principal); E27.1 Primary adrenocortical insufficiency; R64 Cachexia; N17.9 Acute kidney failure, unspecified; F19.20 Other psychoactive substance dependence, uncomplicated; E86.0 Dehydration; E87.2 Acidosis; E87.5 Hyperkalemia; F10.120 Alcohol abuse with intoxication, uncomplicated; F12.10 Cannabis abuse, uncomplicated; F15.10 Other stimulant abuse, uncomplicated; F17.210 Nicotine dependence, cigarettes, uncomplicated; S02.2XXA Fracture of nasal bones, initial encounter for closed fracture; Z91.19 Patient's noncompliance with other medical treatment and regimen; Z86.14 Personal history of Methicillin resistant Staphylococcus aureus infection; Z68.24 Body mass index [BMI] 24.0-24.9, adult
CPT/HCPCS: 36415; 70450; 70486; 80048; 80307; 82533; 82962; 83735; 84100; 85025; 87400; 90686; 93005; 93306; 93356; 96361; 96372; 96374; G0378; J1650; J1815; J3411; J1720; J2060; J7030; J7040; J7512

== ENCOUNTER 2019-12-14 15:39 | Inpatient (IN) | payer MEDICAID ==
[~2019-12-14] VITALS: Ht 182.9 cm; Wt 85.8 kg
[~2019-12-14 15:39] MED LIST changes: +DIAZ5TAB PO; +QUET100T4 PO; +RISP3TAB24 PO; +TRAZ-175 PO
--- NOTE | 2019-12-14 15:57 | NUR ---
first contact with pt. pt is here for adrenal crisis, pt [place] Pt reports recenlty used meth (a little point) last night. Pt reports he was having these sympotms before doing meth. Pt dry heaving in room. pt c/o all over the body pain as well. pt's aox4. resps even and unlabored. bp/spo2 monitors in place. call light within reach. edmd at bedside to evaluate at this time. ekg done in room by emt.
[2019-12-14] MEDS ORDERED: SODIUM CHLORIDE FLUSH 10ML SYR IVF ONE (16:00)
[2019-12-14] MEDS ORDERED: ONDANSETRON 2MG/ML, 2ML IVPush ONE (16:00)
[2019-12-14] MEDS ORDERED: HYDROCORTISONE 100 MG INJ. IVPush ONE (16:00)
[2019-12-14] MEDS ORDERED: SODIUM CHLORIDE 0.9% 1,000ML IVBOLUS ONE ×2 (16:00→17:00)
[2019-12-14] MEDS ORDERED: FAMOTIDINE 20 MG/2 ML IVPush ONE (16:00)
--- NOTE | 2019-12-14 16:12 | NUR ---
pt in xray at this time.
[2019-12-14] MEDS ORDERED: FAMOTIDINE 20 MG/2 ML ONE (16:16)
[2019-12-14] MEDS ORDERED: ONDANSETRON 2MG/ML, 2ML ONE (16:16)
[2019-12-14] MEDS ORDERED: HYDROCORTISONE 100 MG INJ. ONE ×2 (16:16→18:35)
--- NOTE | 2019-12-14 16:23 | NUR ---
PT BACK TO ROOM FROM XRAY AT THIS TIME.
[2019-12-14 16:33] LABS: MEAN CORPUSCULAR HEMOGLOBIN 27.7 pg (27.5-34.5); MEAN CORPUSCULAR HGB CONC 33.8 g/dL (33.2-36.2); MEAN CORPUSCULAR VOLUME 81.8 fL (81-97); MEAN PLATELET VOLUME 8.3 fL (7.4-10.4); PLATELET COUNT 434 x10^3/uL (130-400); RED BLOOD COUNT 5.63 x10^6/uL (4.38-5.82); RED CELL DISTRIBUTION WIDTH 14.3 % (9.4-14.8)
[2019-12-14 16:43] LABS: ALANINE AMINOTRANSFERASE 40 U/L (12-78); ALBUMIN 4.8 g/dL (3.4-5.0); ANION GAP 17 mmol/L (5-15); CALCIUM 10.5 mg/dL (8.5-10.1); CHLORIDE 87 mmol/L (98-107); CREATININE 4.51 mg/dL (0.7-1.3)
--- NOTE | 2019-12-14 16:44 | NUR ---
piv est on l upper arm with no complications. pt medicated per emar. pt tolerated well. ns infusing at this time.
[2019-12-14 16:46] LABS: ALKALINE PHOSPHATASE 128 U/L (45-117); BILIRUBIN,TOTAL 4.1 mg/dL (0.2-1.0); TOTAL PROTEIN 9.2 g/dL (6.4-8.2)
--- NOTE | 2019-12-14 16:49 | NUR ---
urinal at bedside. pt states"i can't pee now"
--- NOTE | 2019-12-14 16:55 | NUR ---
this rn discussed about his lab results with edmd at this time. edmd orderd 2nd L ns at this time, but no "sepsis".
--- NOTE | 2019-12-14 17:00 | NUR ---
ns 2nd L infusing at this time. pt's aox4. resps even and unlabored.
[2019-12-14 17:11] LABS: BASOPHILS # (AUTO) 0.06 x10^3/uL (0-0.1); BASOPHILS % (AUTO) 1 % (0-1); EOSINOPHILS # (AUTO) 0.08 x10^3/uL (0-0.4); EOSINOPHILS % (AUTO) 1 % (1-7); LYMPHOCYTES # (AUTO) 3.15 x10^3/uL (1-3.4); LYMPHOCYTES % (AUTO) 35 % (22-44); MD SCAN; MONOCYTES # (AUTO) 1.81 x10^3/uL (0.2-0.8); MONOCYTES % (AUTO) 20 % (2-9); NEUTROPHILS # (AUTO) 3.99 x10^3/uL (1.8-6.8); NEUTROPHILS % (AUTO) 44 % (42-75)
--- NOTE | 2019-12-14 17:12 | NUR ---
pt in ct at this time.
--- NOTE | 2019-12-14 17:27 | NUR ---
PT BACK TO ROOM FROM CT AT THIS TIME.
[2019-12-14] MEDS: SODIUM CHLORIDE 0.9% 1,000 ML IV SCH (18:02)
--- NOTE | 2019-12-14 18:14 | NUR ---
hospitalist at bedside at this time.
[2019-12-14 18:24] LABS: HCT (SEDRATE) 43.3 % (39.2-51.8)
[2019-12-14] MEDS ORDERED: ONDANSETRON 2MG/ML, 2ML IVPush PRN (18:30)
[2019-12-14] MEDS ORDERED: DOCUSATE 100 MG CAPSULE PO PRN (18:30)
--- NOTE | 2019-12-14 18:33 | NUR ---
ice chips given per hospitalist verbal order at this time.
[2019-12-14 18:35] LABS: ANION GAP 16 mmol/L (5-15); CALCIUM 9.4 mg/dL (8.5-10.1); CHLORIDE 90 mmol/L (98-107); CREATININE 4.32 mg/dL (0.7-1.3)
[2019-12-14] MEDS ORDERED: ACETAMINOPHEN 500 MG TABLET ONE (18:35)
[2019-12-14] MEDS: HYDROCORTISONE 100 MG INJ. IVPush SCH (18:38)
[2019-12-14] MEDS: ACETAMINOPHEN 500 MG TABLET PO PRN ×2 (18:38→21:26)
--- NOTE | 2019-12-14 18:44 | NUR ---
pt medicated per emar(per hospitalist, tylenol first, then if pt has pain still, give morphine). pt tolerated well. ns infusing at this time. pt's aox4. resps even and unlabored.
--- NOTE | 2019-12-14 18:51 | NUR ---
report given to andrea stout.
[2019-12-14 20:09] VITALS: BP 130/84
[2019-12-14 20:30] LABS: ANION GAP 12 mmol/L (5-15); CALCIUM 9.1 mg/dL (8.5-10.1); CHLORIDE 94 mmol/L (98-107); CREATININE 3.55 mg/dL (0.7-1.3)
[2019-12-14] MEDS: morphine SULFATE 10 MG/ML, 1ML IVPush PRN (20:40)
[2019-12-14] MEDS: THIAMINE 100MG TABLET PO SCH (21:26)
[2019-12-14 23:07] LABS: ANION GAP 13 mmol/L (5-15); CALCIUM 8.6 mg/dL (8.5-10.1); CHLORIDE 93 mmol/L (98-107); CREATININE 3.52 mg/dL (0.7-1.3)
[2019-12-15] MEDS: HYDROCORTISONE 100 MG INJ. IVPush SCH ×4 (00:23→17:44)
[2019-12-15] MEDS: morphine SULFATE 10 MG/ML, 1ML IVPush PRN ×2 (00:24→21:49)
[2019-12-15] MEDS: NICOTINE 7 MG/24 HR PATCH.TD24 TD SCH (00:24)
[2019-12-15] MEDS: SODIUM CHLORIDE 0.9% 1,000 ML IV SCH ×2 (00:34→05:17)
[2019-12-15 01:03] LABS: ANION GAP 11 mmol/L (5-15); CHLORIDE 95 mmol/L (98-107); CREATININE 3.18 mg/dL (0.7-1.3)
[2019-12-15 02:34] VITALS: BP 120/74
[2019-12-15 05:16] LABS: BASOPHILS # (AUTO) 0.01 x10^3/uL (0-0.1); BASOPHILS % (AUTO) 0 % (0-1); EOSINOPHILS % (AUTO) 0 % (1-7); LYMPHOCYTES # (AUTO) 0.41 x10^3/uL (1-3.4); LYMPHOCYTES % (AUTO) 10 % (22-44); MD NO; MEAN CORPUSCULAR HEMOGLOBIN 27.7 pg (27.5-34.5); MEAN CORPUSCULAR HGB CONC 33.2 g/dL (33.2-36.2); MEAN CORPUSCULAR VOLUME 83.4 fL (81-97); MEAN PLATELET VOLUME 8.7 fL (7.4-10.4); MONOCYTES % (AUTO) 5 % (2-9); NEUTROPHILS # (AUTO) 3.38 x10^3/uL (1.8-6.8); NEUTROPHILS % (AUTO) 85 % (42-75); PLATELET COUNT 328 x10^3/uL (130-400); RED BLOOD COUNT 4.84 x10^6/uL (4.38-5.82); RED CELL DISTRIBUTION WIDTH 14.4 % (9.4-14.8)
[2019-12-15 05:28] LABS: CALCIUM 8.7 mg/dL (8.5-10.1); CHLORIDE 98 mmol/L (98-107)
[2019-12-15 05:42] LABS: ALANINE AMINOTRANSFERASE 36 U/L (12-78); ALBUMIN 3.8 g/dL (3.4-5.0); ALKALINE PHOSPHATASE 105 U/L (45-117); ANION GAP 10 mmol/L (5-15); CREATINE KINASE, TOTAL 964 U/L (39-308); CREATININE 2.57 mg/dL (0.7-1.3)
[2019-12-15 06:57] VITALS: BP 115/73
[2019-12-15 07:28] LABS: MICROSCOPIC NOT IND
[2019-12-15] MEDS ORDERED: PANTOPRAZOLE 40 MG IV IVPush SCH (07:30)
[2019-12-15 07:39] LABS: AMPHETAMINE SCREEN, URINE Positive (Negative); BARBITURATE SCREEN, URINE Negative (Negative); BENZODIAZEPINE SCREEN, URINE Negative (Negative); CANNABINOID SCREEN, URINE Positive (Negative); COCAINE SCREEN, URINE Negative (Negative); METHADONE SCREEN, URINE Negative (Negative); OPIATE SCREEN, URINE Positive (Negative)
[2019-12-15] MEDS: MULTIVITAMINS/MINERALS TABLET PO SCH (08:19)
[2019-12-15] MEDS: THIAMINE 100MG TABLET PO SCH ×2 (08:19→20:48)
[2019-12-15] MEDS: ACETAMINOPHEN 500 MG TABLET PO PRN ×3 (08:19→23:05)
[2019-12-15] MEDS: FLUDROCORTISONE 0.1 MG TABLET PO SCH (08:19)
[2019-12-15] MEDS: QUETIAPINE 100MG TABLET PO PRN ×2 (08:37→20:48)
[2019-12-15 12:36] VITALS: BP 116/79
[2019-12-15 12:56] LABS: ANION GAP 6 mmol/L (5-15); CALCIUM 8.6 mg/dL (8.5-10.1); CHLORIDE 103 mmol/L (98-107); CREATININE 1.94 mg/dL (0.7-1.3)
[2019-12-15] MEDS ORDERED: SODIUM CHLORIDE 0.9% 1,000 ML IV SCH ×2 (18:02)
[2019-12-15 18:56] LABS: ANION GAP 8 mmol/L (5-15); CALCIUM 8.5 mg/dL (8.5-10.1); CHLORIDE 103 mmol/L (98-107); CREATININE 2.05 mg/dL (0.7-1.3)
[2019-12-15 20:01] VITALS: BP 114/71
[2019-12-15] MEDS ORDERED: ZOLPIDEM 5MG TABLET PO SCH ×2 (23:00→23:30)
[2019-12-15] MEDS ORDERED: ZOLPIDEM 5MG TABLET PO ONE (23:30)
[2019-12-16 00:57] VITALS: BP 116/72
[2019-12-16] MEDS: HYDROCORTISONE 100 MG INJ. IVPush SCH ×4 (01:42→17:55)
[2019-12-16] MEDS: NICOTINE 7 MG/24 HR PATCH.TD24 TD SCH (01:43)
[2019-12-16] MEDS ORDERED: PANTOPRAZOLE 40MG TABLET PO SCH (06:00)
[2019-12-16 07:04] LABS: ANION GAP 9 mmol/L (5-15); CALCIUM 8.6 mg/dL (8.5-10.1); CHLORIDE 106 mmol/L (98-107); CREATININE 1.38 mg/dL (0.7-1.3)
[2019-12-16] MEDS ORDERED: CHLORHEXIDINE 15 ML UDC ONE (07:32)
[2019-12-16] MEDS ORDERED: MIDAZOLAM 1 MG/ML, 2ML ONE (07:40)
[2019-12-16] MEDS ORDERED: FENTANYL PF 100 MCG/2ML ONE (07:40)
[2019-12-16] MEDS ORDERED: ROCURONIUM 10MG/ML,5ML ONE (07:41)
[2019-12-16] MEDS ORDERED: hydrALAzine 20 MG/ML, 1ML IV PRN (08:00)
[2019-12-16] MEDS ORDERED: FENTANYL PF 100 MCG/2ML IV PRN (08:00)
[2019-12-16] MEDS ORDERED: OXYcodone 5 MG/5 ML ORAL.SOL UDC PO PRN (08:00)
[2019-12-16] MEDS ORDERED: LABETALOL 5MG/ML, 20ML IV PRN (08:00)
[2019-12-16] MEDS ORDERED: PROMETHAZINE 25 MG/ML, 1ML IVPush PRN (08:00)
[2019-12-16] MEDS ORDERED: ONDANSETRON 2MG/ML, 2ML IVPush PRN (08:00)
[2019-12-16] MEDS ORDERED: HYDROmorphone 1 MG/ML, 1ML INJ IVPush PRN (08:00)
[2019-12-16] MEDS ORDERED: PANTOPRAZOLE 40 MG IV IVPush SCH (09:00)
[2019-12-16 09:32] VITALS: BP 112/73
[2019-12-16] MEDS: FLUDROCORTISONE 0.1 MG TABLET PO SCH (09:39)
[2019-12-16] MEDS: MULTIVITAMINS/MINERALS TABLET PO SCH (09:39)
[2019-12-16] MEDS: THIAMINE 100MG TABLET PO SCH ×2 (09:39→20:26)
[2019-12-16] MEDS: ACETAMINOPHEN 500 MG TABLET PO PRN (09:44)
[2019-12-16] MEDS: QUETIAPINE 100MG TABLET PO PRN ×2 (09:46→21:25)
[2019-12-16 14:23] VITALS: BP 113/73
[2019-12-16] MEDS: PANTOPRAZOLE 40MG TABLET PO SCH (16:30)
[2019-12-16 19:45] VITALS: BP 118/69
[2019-12-16] MEDS: morphine SULFATE 10 MG/ML, 1ML IVPush PRN (21:26)
[2019-12-17] MEDS: NICOTINE 7 MG/24 HR PATCH.TD24 TD SCH (00:32)
[2019-12-17] MEDS: HYDROCORTISONE 100 MG INJ. IVPush SCH ×3 (00:32→12:08)
[2019-12-17 01:32] LABS: ALBUMIN 3.3 g/dL (3.4-5.0); ANION GAP 9 mmol/L (5-15); CALCIUM 8.3 mg/dL (8.5-10.1); CHLORIDE 107 mmol/L (98-107)
[2019-12-17 01:34] LABS: ALANINE AMINOTRANSFERASE 23 U/L (12-78); ALKALINE PHOSPHATASE 98 U/L (45-117); BILIRUBIN,TOTAL 0.5 mg/dL (0.2-1.0); CREATININE 1.14 mg/dL (0.7-1.3); TOTAL PROTEIN 6.6 g/dL (6.4-8.2)
[2019-12-17 01:53] VITALS: BP 113/53
[2019-12-17] MEDS: PANTOPRAZOLE 40MG TABLET PO SCH (06:13)
[2019-12-17 07:17] VITALS: BP 120/77
[2019-12-17 07:35] LABS: CHLORIDE 107 mmol/L (98-107)
[2019-12-17 07:59] LABS: CREATININE 1.07 mg/dL (0.7-1.3)
[2019-12-17] MEDS: THIAMINE 100MG TABLET PO SCH (08:00)
[2019-12-17] MEDS: FLUDROCORTISONE 0.1 MG TABLET PO SCH (08:00)
[2019-12-17] MEDS: MULTIVITAMINS/MINERALS TABLET PO SCH (08:00)
[2019-12-17] MEDS: ACETAMINOPHEN 500 MG TABLET PO PRN (08:03)
[2019-12-17] MEDS: QUETIAPINE 100MG TABLET PO PRN (08:03)
[2019-12-17 09:07] LABS: ANION GAP 8 mmol/L (5-15); CALCIUM 8.5 mg/dL (8.5-10.1)
[2019-12-17 12:55] VITALS: BP 122/81
[2019-12-17 13:07] LABS: ANION GAP 7 mmol/L (5-15); CALCIUM 8.7 mg/dL (8.5-10.1); CHLORIDE 105 mmol/L (98-107); CREATININE 1.02 mg/dL (0.7-1.3)
[2019-12-17] MEDS ORDERED: PANT40TA5 PO (13:54)
[2019-12-17] MEDS ORDERED: HYDR10TA PO (13:54)
== END 2019-12-17 14:54 | disposition home or self-care (01) | DRG 377 ==
LOC: ED 16:00 → EDIP 17:25 → 4EST 19:53
PROVIDERS: ADMIT Student in an Organized Health Care Education/Training Program; ATTEND Student in an Organized Health Care Education/Training Program
PROC: 0DJ08ZZ Inspection of Upper Intestinal Tract, Via Natural or Artificial Opening Endoscopic (ICD-10-PCS; principal; 2019-12-16 08:00)
DX: K92.0 Hematemesis (principal); N17.0 Acute kidney failure with tubular necrosis; E27.2 Addisonian crisis; E87.1 Hypo-osmolality and hyponatremia; E87.2 Acidosis; F13.20 Sedative, hypnotic or anxiolytic dependence, uncomplicated; F10.239 Alcohol dependence with withdrawal, unspecified; E27.1 Primary adrenocortical insufficiency; E86.0 Dehydration; E86.1 Hypovolemia; K20.9 Esophagitis, unspecified; E87.8 Other disorders of electrolyte and fluid balance, not elsewhere classified; F17.210 Nicotine dependence, cigarettes, uncomplicated; F32.9 Major depressive disorder, single episode, unspecified; F43.10 Post-traumatic stress disorder, unspecified; F15.90 Other stimulant use, unspecified, uncomplicated; M79.673 Pain in unspecified foot; R94.31 Abnormal electrocardiogram [ECG] [EKG]; E80.6 Other disorders of bilirubin metabolism; Z59.0 Homelessness; Z86.14 Personal history of Methicillin resistant Staphylococcus aureus infection
CPT/HCPCS: 36415; 74022; 82024; J3490; 74176; 80048; 80053; 80307; 81003; 82088; 82533; 82550; 83036; 83605; 83690; 83735; 83930; 83970; 84100; 84244; 84443; 85025; 85651; 87040; 93005; G0378; J2250; J2405; J3010; C9113; J1720; J2270; J7030

== ENCOUNTER 2020-01-18 12:04 | Emergency (ER) | payer MEDICAID ==
[~2020-01-18] VITALS: Ht 188 cm; Wt 88.1 kg
[~2020-01-18 12:04] MED LIST changes: +HYDR10TA PO; +PANT40TA5 PO
--- NOTE | 2020-01-18 12:55 | NUR ---
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
[2020-01-18 13:06] LABS: BASOPHILS # (AUTO) 0.02 x10^3/uL (0-0.1); BASOPHILS % (AUTO) 0 % (0-1); EOSINOPHILS % (AUTO) 0 % (1-7); LYMPHOCYTES # (AUTO) 0.81 x10^3/uL (1-3.4); LYMPHOCYTES % (AUTO) 21 % (22-44); MD NO; MEAN CORPUSCULAR HEMOGLOBIN 27.3 pg (27.5-34.5); MEAN CORPUSCULAR HGB CONC 33.4 g/dL (33.2-36.2); MEAN CORPUSCULAR VOLUME 81.8 fL (81-97); MONOCYTES # (AUTO) 0.38 x10^3/uL (0.2-0.8); MONOCYTES % (AUTO) 10 % (2-9); NEUTROPHILS # (AUTO) 2.61 x10^3/uL (1.8-6.8); NEUTROPHILS % (AUTO) 68 % (42-75); PLATELET COUNT 224 x10^3/uL (130-400); RED BLOOD COUNT 5.25 x10^6/uL (4.38-5.82); RED CELL DISTRIBUTION WIDTH 14.8 % (9.4-14.8)
[2020-01-18 13:18] LABS: ALANINE AMINOTRANSFERASE 63 U/L (12-78); ALBUMIN 3.7 g/dL (3.4-5.0); ANION GAP 8 mmol/L (5-15); CALCIUM 8.8 mg/dL (8.5-10.1); CHLORIDE 94 mmol/L (98-107); CREATININE 1.36 mg/dL (0.7-1.3)
[2020-01-18 13:20] LABS: ALKALINE PHOSPHATASE 103 U/L (45-117); BILIRUBIN,TOTAL 1.4 mg/dL (0.2-1.0); TOTAL PROTEIN 8.1 g/dL (6.4-8.2)
--- NOTE | 2020-01-18 13:21 | NUR ---
SANDHU X 4 DAYS. VOMITING BLOOD SINCE LAST NIGHT. "SOMETHING WRONG WITH MY LUNGS", SOB, MUSCLE PAIN. HX OF LUNG AND CARDIAC TRAUMA AND SURGERY. Pt reports he recently overdosed on heroine. Pt reports that he is having trouble walking and reports his breathing is labored and unable to catch his breath. Pt is able to speak in full sentances. Pt also reports that he has a headache. Pt appears to be having a head cold.
--- NOTE | 2020-01-18 13:24 | NUR ---
Pt to CT
[2020-01-18] MEDS ORDERED: METOCLOPRAMIDE 5 MG/ML, 2ML IVPush ONE (13:30)
[2020-01-18] MEDS ORDERED: SODIUM CHLORIDE 0.9% 1,000ML IVBOLUS ONE (13:30)
[2020-01-18] MEDS ORDERED: DIPHENHYDRAMINE 50 MG/ML, 1ML IVPush ONE (13:30)
[2020-01-18] MEDS ORDERED: KETOROLAC 30 MG/1 ML IVPush ONE (13:30)
[2020-01-18] MEDS ORDERED: DIPHENHYDRAMINE 50 MG/ML, 1ML ONE (13:33)
[2020-01-18] MEDS ORDERED: KETOROLAC 30 MG/1 ML ONE (13:33)
[2020-01-18] MEDS ORDERED: METOCLOPRAMIDE 5 MG/ML, 2ML ONE (13:33)
[2020-01-18 13:37] VITALS: BP 113/73
--- NOTE | 2020-01-18 13:45 | NUR ---
piv placed-medicated per emar for generalized siegel at 02/27
[2020-01-18] MEDS ORDERED: SODIUM CHLORIDE FLUSH 10ML SYR IVF ONE (14:00)
--- NOTE | 2020-01-18 14:28 | NUR ---
With reassessment Neil improved to 12/28 Provider to bedside to report diagnosis/plan (dc with po abx for pna) Ivf 80% complete- to d/c once complete
== END 2020-01-18 14:50 | disposition home or self-care (01) ==
LOC: ED 13:30
DX: U07.1 COVID-19 (principal); J18.1 Lobar pneumonia, unspecified organism; E87.1 Hypo-osmolality and hyponatremia; R51 Headache; R00.0 Tachycardia, unspecified; F17.200 Nicotine dependence, unspecified, uncomplicated
CPT/HCPCS: 36415; 70450; 71045; 80053; 85025; 87635; 93005; 96374; 96375; 99285; J1200; J1885; J2765; J7030

== ENCOUNTER 2020-03-22 12:21 | Inpatient (IN) | payer MEDICAID ==
[~2020-03-22] VITALS: Ht 185.4 cm; Wt 88.7 kg
[~2020-03-22 12:21] MED LIST changes: -PANT40TA5 PO; +PANT40TA6 PO
[2020-03-22] MEDS ORDERED: APIX5TAB PO (13:18)
--- NOTE | 2020-03-22 13:19 | NUR ---
"I FEEL A CRAMPING IN MY UPPER STOMACH AND CHEST" +N/V +SANDHU AND NECK PAIN. PT IN BED IN GOWN WITH CONT CAPACITY PLANNER, SPO2, BP Q 30 MIN, SIDE RAILS UP X2, CALL LIGHT IN REACH. 20 G IV STARTED IN RIGHT AC. PT VOMITING IN ROOM.
--- NOTE | 2020-03-22 13:20 | NUR ---
ANNA GARCIA AT BEDSIDE. PT N/V STARTING 1 H AGO. PT REPORTS THAT HE HAS BEEN SMOKING ALOT OF CIGARETTES AND METH IS CAUSING HIM TO FEEL SICK.
[2020-03-22] MEDS ORDERED: SODIUM CHLORIDE FLUSH 10ML SYR IVF ONE (13:30)
[2020-03-22] MEDS ORDERED: SODIUM CHLORIDE 0.9% 1,000ML IVBOLUS ONE (13:30)
[2020-03-22] MEDS ORDERED: ONDANSETRON 2MG/ML, 2ML IVPush ONE (13:30)
[2020-03-22] MEDS ORDERED: FAMOTIDINE 20 MG/2 ML IVPush ONE (13:30)
[2020-03-22 13:45] LABS: MEAN CORPUSCULAR HEMOGLOBIN 26.1 pg (27.5-34.5); MEAN CORPUSCULAR HGB CONC 33.1 g/dL (33.2-36.2); MEAN CORPUSCULAR VOLUME 78.7 fL (81-97); MEAN PLATELET VOLUME 9.9 fL (7.4-10.4); PLATELET COUNT 459 x10^3/uL (130-400); RED BLOOD COUNT 5.65 x10^6/uL (4.38-5.82); RED CELL DISTRIBUTION WIDTH 16.2 % (9.4-14.8)
[2020-03-22] MEDS ORDERED: ONDANSETRON 2MG/ML, 2ML ONE (13:55)
[2020-03-22] MEDS ORDERED: FAMOTIDINE 20 MG/2 ML ONE (13:56)
--- NOTE | 2020-03-22 14:04 | NUR ---
Pt medicated per emar.
--- NOTE | 2020-03-22 14:09 | NUR ---
Labs redrawn and sent to labs.
[2020-03-22 14:22] LABS: BASOPHILS # (AUTO) 0.14 x10^3/uL (0-0.1); BASOPHILS % (AUTO) 1 % (0-1); EOSINOPHILS # (AUTO) 0.13 x10^3/uL (0-0.4); EOSINOPHILS % (AUTO) 1 % (1-7); LYMPHOCYTES # (AUTO) 2.21 x10^3/uL (1-3.4); LYMPHOCYTES % (AUTO) 16 % (22-44); MD SCAN; MONOCYTES # (AUTO) 1.85 x10^3/uL (0.2-0.8); MONOCYTES % (AUTO) 14 % (2-9); NEUTROPHILS # (AUTO) 9.31 x10^3/uL (1.8-6.8); NEUTROPHILS % (AUTO) 68 % (42-75)
[2020-03-22 14:27] LABS: ALANINE AMINOTRANSFERASE 86 U/L (12-78); ALBUMIN 5.1 g/dL (3.4-5.0); ANION GAP 12 mmol/L (5-15); CALCIUM 10.6 mg/dL (8.5-10.1); CHLORIDE 95 mmol/L (98-107); CREATININE 2.49 mg/dL (0.7-1.3)
[2020-03-22 14:29] LABS: ALKALINE PHOSPHATASE 145 U/L (45-117); BILIRUBIN,TOTAL 2.8 mg/dL (0.2-1.0); TOTAL PROTEIN 8.9 g/dL (6.4-8.2)
[2020-03-22] MEDS ORDERED: DEXAMETHASONE 4 MG/ML, 1ML IVPush ONE (15:00)
[2020-03-22] MEDS ORDERED: DEXAMETHASONE 4 MG/ML, 1ML ONE (15:34)
--- NOTE | 2020-03-22 15:53 | NUR ---
MARIVEL RN: PT RESTING IN ROOM. NO ACUTE DISTRESS NOTED. CALL LIGHT IN PLACE. WILL CONTINUE TO MONITOR.
[2020-03-22] MEDS ORDERED: SODIUM CHLORIDE 0.9% 1,000 ML IV ONE (16:20)
[2020-03-22] MEDS ORDERED: DOCUSATE 100 MG CAPSULE PO PRN (16:30)
[2020-03-22] MEDS ORDERED: hydrALAzine 20 MG/ML, 1ML IVPush PRN (16:30)
[2020-03-22] MEDS ORDERED: SODIUM CHLORIDE FLUSH 10ML SYR IVF PRN (16:30)
[2020-03-22] MEDS ORDERED: LABETALOL 5MG/ML, 20ML IVPush PRN (16:30)
[2020-03-22] MEDS ORDERED: ONDANSETRON ODT 4 MG PO PRN (16:30)
[2020-03-22] MEDS: SODIUM CHLORIDE 0.9% 1,000 ML IV SCH ×2 (16:44→23:07)
--- NOTE | 2020-03-22 16:45 | NUR ---
Pt given po fluids
--- NOTE | 2020-03-22 16:55 | NUR ---
Pt medicated per emar.
--- NOTE | 2020-03-22 17:16 | NUR ---
Report to Hanh ECHEVERRIA
[2020-03-22 17:58] VITALS: BP 119/79
[2020-03-22 19:36] VITALS: BP 119/83
[2020-03-22] MEDS: APIXABAN 5 MG TABLET PO SCH (20:18)
[2020-03-22] MEDS: HYDROCORTISONE 100 MG INJ. IVPush SCH (20:18)
[2020-03-22] MEDS: QUETIAPINE 100MG TABLET PO PRN (23:14)
[2020-03-23 01:06] VITALS: BP 117/81
[2020-03-23] MEDS: HYDROCORTISONE 100 MG INJ. IVPush SCH ×4 (03:57→20:35)
[2020-03-23 05:04] LABS: BASOPHILS % (AUTO) 0 % (0-1); EOSINOPHILS % (AUTO) 0 % (1-7); LYMPHOCYTES # (AUTO) 0.54 x10^3/uL (1-3.4); LYMPHOCYTES % (AUTO) 8 % (22-44); MD NO; MEAN CORPUSCULAR HEMOGLOBIN 26.3 pg (27.5-34.5); MEAN CORPUSCULAR HGB CONC 33.2 g/dL (33.2-36.2); MEAN CORPUSCULAR VOLUME 79.3 fL (81-97); MEAN PLATELET VOLUME 8.9 fL (7.4-10.4); MONOCYTES # (AUTO) 0.31 x10^3/uL (0.2-0.8); MONOCYTES % (AUTO) 5 % (2-9); NEUTROPHILS # (AUTO) 5.63 x10^3/uL (1.8-6.8); NEUTROPHILS % (AUTO) 87 % (42-75); PLATELET COUNT 356 x10^3/uL (130-400); RED BLOOD COUNT 4.67 x10^6/uL (4.38-5.82); RED CELL DISTRIBUTION WIDTH 16.3 % (9.4-14.8)
[2020-03-23 05:10] LABS: ALANINE AMINOTRANSFERASE 71 U/L (12-78); ALBUMIN 3.9 g/dL (3.4-5.0); ANION GAP 10 mmol/L (5-15); CALCIUM 8.8 mg/dL (8.5-10.1); CHLORIDE 99 mmol/L (98-107); CREATININE 1.57 mg/dL (0.7-1.3)
[2020-03-23 05:12] LABS: ALKALINE PHOSPHATASE 118 U/L (45-117); BILIRUBIN,TOTAL 3.1 mg/dL (0.2-1.0); TOTAL PROTEIN 7.9 g/dL (6.4-8.2)
[2020-03-23] MEDS: PANTOPRAZOLE 40MG TABLET PO SCH ×2 (05:29→17:42)
[2020-03-23] MEDS: SODIUM CHLORIDE 0.9% 1,000 ML IV SCH ×3 (05:30→23:59)
[2020-03-23] MEDS ORDERED: NICOTINE 14MG/24 HR PATCH.TD24 ONE (06:18)
[2020-03-23] MEDS: NICOTINE 14MG/24 HR PATCH.TD24 TD SCH (06:20)
[2020-03-23 07:47] VITALS: BP 121/71
[2020-03-23] MEDS: FLUDROCORTISONE 0.1 MG TABLET PO SCH (08:33)
[2020-03-23] MEDS: APIXABAN 5 MG TABLET PO SCH ×2 (08:33→20:36)
[2020-03-23 12:36] VITALS: BP 129/75
[2020-03-23 18:46] VITALS: BP 113/68
[2020-03-24 01:28] VITALS: BP 120/81
[2020-03-24] MEDS: HYDROCORTISONE 100 MG INJ. IVPush SCH ×4 (03:05→20:44)
[2020-03-24 05:31] LABS: CHLORIDE 106 mmol/L (98-107)
[2020-03-24 05:42] LABS: ALANINE AMINOTRANSFERASE 57 U/L (12-78); ALBUMIN 3.6 g/dL (3.4-5.0); ALKALINE PHOSPHATASE 105 U/L (45-117); ANION GAP 6 mmol/L (5-15); BILIRUBIN,TOTAL 1.4 mg/dL (0.2-1.0); CALCIUM 8.6 mg/dL (8.5-10.1); CREATININE 0.96 mg/dL (0.7-1.3); TOTAL PROTEIN 7.1 g/dL (6.4-8.2)
[2020-03-24] MEDS: PANTOPRAZOLE 40MG TABLET PO SCH ×2 (05:43→16:37)
[2020-03-24] MEDS: QUETIAPINE 100MG TABLET PO PRN ×2 (05:49→20:45)
[2020-03-24 06:00] LABS: BASOPHILS % (AUTO) 0 % (0-1); EOSINOPHILS % (AUTO) 0 % (1-7); LYMPHOCYTES # (AUTO) 0.66 x10^3/uL (1-3.4); LYMPHOCYTES % (AUTO) 8 % (22-44); MD NO; MEAN CORPUSCULAR HGB CONC 32.2 g/dL (33.2-36.2); MEAN CORPUSCULAR VOLUME 80.6 fL (81-97); MEAN PLATELET VOLUME 8.9 fL (7.4-10.4); MONOCYTES % (AUTO) 10 % (2-9); NEUTROPHILS # (AUTO) 6.34 x10^3/uL (1.8-6.8); NEUTROPHILS % (AUTO) 81 % (42-75); PLATELET COUNT 304 x10^3/uL (130-400); RED BLOOD COUNT 4.18 x10^6/uL (4.38-5.82); RED CELL DISTRIBUTION WIDTH 17.1 % (9.4-14.8)
[2020-03-24] MEDS: SODIUM CHLORIDE 0.9% 1,000 ML IV SCH ×3 (07:22→20:45)
[2020-03-24] MEDS ORDERED: BUPR2TAB SL (07:38)
[2020-03-24 07:49] VITALS: BP 124/82
[2020-03-24] MEDS: NICOTINE 14MG/24 HR PATCH.TD24 TD SCH (09:10)
[2020-03-24] MEDS: FLUDROCORTISONE 0.1 MG TABLET PO SCH (09:10)
[2020-03-24] MEDS: APIXABAN 5 MG TABLET PO SCH ×2 (09:10→20:45)
[2020-03-24 12:26] VITALS: BP 114/75
[2020-03-24] MEDS ORDERED: HYDR-3590 PO (16:06)
[2020-03-24 19:46] VITALS: BP 139/93
[2020-03-25 00:44] VITALS: BP 132/82
[2020-03-25] MEDS: HYDROCORTISONE 100 MG INJ. IVPush SCH ×2 (03:39→08:36)
[2020-03-25] MEDS: SODIUM CHLORIDE 0.9% 1,000 ML IV SCH ×2 (03:42→10:20)
[2020-03-25] MEDS: PANTOPRAZOLE 40MG TABLET PO SCH (05:50)
[2020-03-25 06:02] LABS: BASOPHILS # (AUTO) 0.01 x10^3/uL (0-0.1); BASOPHILS % (AUTO) 0 % (0-1); EOSINOPHILS % (AUTO) 0 % (1-7); LYMPHOCYTES # (AUTO) 1.03 x10^3/uL (1-3.4); LYMPHOCYTES % (AUTO) 17 % (22-44); MD NO; MEAN CORPUSCULAR HEMOGLOBIN 26.3 pg (27.5-34.5); MEAN CORPUSCULAR HGB CONC 32.6 g/dL (33.2-36.2); MEAN CORPUSCULAR VOLUME 80.6 fL (81-97); MEAN PLATELET VOLUME 8.9 fL (7.4-10.4); MONOCYTES # (AUTO) 0.64 x10^3/uL (0.2-0.8); MONOCYTES % (AUTO) 10 % (2-9); NEUTROPHILS # (AUTO) 4.56 x10^3/uL (1.8-6.8); NEUTROPHILS % (AUTO) 73 % (42-75); PLATELET COUNT 306 x10^3/uL (130-400); RED BLOOD COUNT 4.19 x10^6/uL (4.38-5.82); RED CELL DISTRIBUTION WIDTH 17.1 % (9.4-14.8)
[2020-03-25 06:08] LABS: CHLORIDE 107 mmol/L (98-107)
[2020-03-25 06:13] LABS: ANION GAP 4 mmol/L (5-15); CALCIUM 8.7 mg/dL (8.5-10.1); CREATININE 0.87 mg/dL (0.7-1.3)
[2020-03-25 06:40] VITALS: BP 137/88
[2020-03-25] MEDS: FLUDROCORTISONE 0.1 MG TABLET PO SCH (08:36)
[2020-03-25] MEDS: APIXABAN 5 MG TABLET PO SCH (08:36)
[2020-03-25] MEDS: NICOTINE 14MG/24 HR PATCH.TD24 TD SCH (08:36)
== END 2020-03-25 13:06 | disposition home or self-care (01) | DRG 683 ==
LOC: ED 13:33 → EDIP 16:20 → 4WST 17:41
PROVIDERS: ADMIT Student in an Organized Health Care Education/Training Program; ATTEND Student in an Organized Health Care Education/Training Program
DX: N17.9 Acute kidney failure, unspecified (principal); E27.1 Primary adrenocortical insufficiency; E87.1 Hypo-osmolality and hyponatremia; F15.20 Other stimulant dependence, uncomplicated; B17.9 Acute viral hepatitis, unspecified; E27.2 Addisonian crisis; E86.0 Dehydration; E86.1 Hypovolemia; E87.5 Hyperkalemia; F17.200 Nicotine dependence, unspecified, uncomplicated; F31.9 Bipolar disorder, unspecified; F41.9 Anxiety disorder, unspecified; F19.10 Other psychoactive substance abuse, uncomplicated; Z59.0 Homelessness; Z86.14 Personal history of Methicillin resistant Staphylococcus aureus infection; Z72.89 Other problems related to lifestyle
CPT/HCPCS: 36415; 96361; 96374; 96375; 99291; J3490; 71045; 80048; 80053; 83690; 83735; 84100; 85025; 93005; G0378; J1100; J2405; J1720; J7030

== ENCOUNTER 2020-03-29 06:39 | Emergency (ER) | payer MEDICAID ==
[~2020-03-29] VITALS: Ht 188 cm; Wt 88.1 kg
[~2020-03-29 06:39] MED LIST changes: +APIX5TAB PO; +BUPR2TAB SL; +HYDR-3590 PO
--- NOTE | 2020-03-29 07:30 | NUR ---
PT STATES HE IS FEELING CONFUSED. PT ADMITS TO DRINKING MANY TALL BEERS LAST NIGHT. PLACED ON MONITOR, EKG COMPLETED AND LAB AT BEDSIDE DRAWING BLOOD
[2020-03-29 07:35] LABS: ALANINE AMINOTRANSFERASE 50 U/L (12-78); ALBUMIN 3.8 g/dL (3.4-5.0); ANION GAP 8 mmol/L (5-15); CALCIUM 8.4 mg/dL (8.5-10.1); CHLORIDE 103 mmol/L (98-107); CREATININE 0.92 mg/dL (0.7-1.3)
[2020-03-29 07:37] LABS: ALKALINE PHOSPHATASE 120 U/L (45-117); BASOPHILS # (AUTO) 0.02 x10^3/uL (0-0.1); BASOPHILS % (AUTO) 0 % (0-1); BILIRUBIN,TOTAL 1.6 mg/dL (0.2-1.0); EOSINOPHILS # (AUTO) 0.27 x10^3/uL (0-0.4); EOSINOPHILS % (AUTO) 5 % (1-7); LYMPHOCYTES # (AUTO) 2.22 x10^3/uL (1-3.4); LYMPHOCYTES % (AUTO) 43 % (22-44); MD NO; MEAN CORPUSCULAR HEMOGLOBIN 25.9 pg (27.5-34.5); MEAN CORPUSCULAR HGB CONC 32.6 g/dL (33.2-36.2); MEAN CORPUSCULAR VOLUME 79.4 fL (81-97); MEAN PLATELET VOLUME 7.7 fL (7.4-10.4); MONOCYTES % (AUTO) 8 % (2-9); NEUTROPHILS # (AUTO) 2.22 x10^3/uL (1.8-6.8); NEUTROPHILS % (AUTO) 43 % (42-75); PLATELET COUNT 377 x10^3/uL (130-400); RED BLOOD COUNT 5.06 x10^6/uL (4.38-5.82); RED CELL DISTRIBUTION WIDTH 17.5 % (9.4-14.8); TOTAL PROTEIN 7.6 g/dL (6.4-8.2)
--- NOTE | 2020-03-29 08:14 | NUR ---
SPOKE WITH PHARMACY TO VERIFY MED DOSES THAT PT TAKES OF STEROIDS AND PASSED ON TO PROVIDER TIAGO
[2020-03-29] MEDS ORDERED: FLUDROCORTISONE 0.1 MG TABLET PO ONE (08:30)
[2020-03-29] MEDS ORDERED: HYDROCORTISONE 10 MG TABLET PO ONE (08:30)
--- NOTE | 2020-03-29 08:30 | NUR ---
BREAK RN: REQUESTED MEDICATION FROM PHARMACY
[2020-03-29 09:31] VITALS: BP 129/83
--- NOTE | 2020-03-29 09:31 | NUR ---
AFTER MEDICATED WITH MEDS PT NORMALLY TAKES AND NOTED ON SEP, PT AMBULATED TO DISCHARGE WINDOW WITHOUT ASSISTANCE, STEADY GAIT
== END 2020-03-29 09:33 | disposition home or self-care (01) ==
LOC: ED 07:18
DX: E27.1 Primary adrenocortical insufficiency (principal); R11.2 Nausea with vomiting, unspecified; M79.10 Myalgia, unspecified site; R53.1 Weakness; R10.9 Unspecified abdominal pain; E87.5 Hyperkalemia; I95.9 Hypotension, unspecified; E87.1 Hypo-osmolality and hyponatremia; Z76.0 Encounter for issue of repeat prescription
CPT/HCPCS: 36415; 80053; 85025; 93005; 99284

== ENCOUNTER 2020-04-26 06:09 | Emergency (ER) | payer MEDICAID ==
[~2020-04-26] VITALS: Ht 185.4 cm; Wt 89.5 kg
[2020-04-26] MEDS ORDERED: HYDROCORTISONE 10 MG TABLET PO ONE (06:30)
[2020-04-26] MEDS ORDERED: FLUDROCORTISONE 0.1 MG TABLET PO ONE (06:36)
--- NOTE | 2020-04-26 07:00 | NUR ---
REPORT FROM NOC RN, PT RESTING ON CJ AT THIS TIME. NO NEEDS. ANTICIPATE DC
[2020-04-26 07:07] LABS: BASOPHILS % (AUTO) 1 % (0-1); EOSINOPHILS % (AUTO) 2 % (1-7); LYMPHOCYTES % (AUTO) 27 % (22-44); MEAN CORPUSCULAR HEMOGLOBIN 26.6 pg (27.5-34.5); MEAN CORPUSCULAR HGB CONC 32.8 g/dL (33.2-36.2); MEAN PLATELET VOLUME 7.4 fL (7.4-10.4); MONOCYTES % (AUTO) 11 % (2-9); NEUTROPHILS % (AUTO) 59 % (42-75); PLATELET COUNT 363 x10^3/uL (130-400); RED BLOOD COUNT 4.59 x10^6/uL (4.38-5.82); RED CELL DISTRIBUTION WIDTH 18.3 % (9.4-14.8)
[2020-04-26 07:12] LABS: MD NO
[2020-04-26 07:15] LABS: ALBUMIN 3.8 g/dL (3.4-5.0); ANION GAP 7 mmol/L (5-15); CALCIUM 8.9 mg/dL (8.5-10.1); CHLORIDE 99 mmol/L (98-107)
[2020-04-26 07:19] LABS: CREATININE 1.25 mg/dL (0.7-1.3)
[2020-04-26 07:20] LABS: ALANINE AMINOTRANSFERASE 27 U/L (12-78); ALKALINE PHOSPHATASE 95 U/L (45-117); BILIRUBIN,TOTAL 2.6 mg/dL (0.2-1.0); TOTAL PROTEIN 7.4 g/dL (6.4-8.2)
--- NOTE | 2020-04-26 07:53 | NUR ---
Demetrice cristobal in ED - 04/26/20 at 0754 by ALICIA PT RESTING ON [employer] AT THIS TIME. VSS, SI PRECAUTION OBSERVED, PT REQUESTING MEAL TRAY, ORDER PLACED, NO OTHER NEEDS
== END 2020-04-26 08:58 | disposition home or self-care (01) ==
LOC: ED 06:49
DX: F15.10 Other stimulant abuse, uncomplicated (principal); F11.10 Opioid abuse, uncomplicated; E27.1 Primary adrenocortical insufficiency; R30.0 Dysuria; F17.210 Nicotine dependence, cigarettes, uncomplicated
CPT/HCPCS: 36415; 80053; 85025; 93005; 99284; 99406